=== PATIENT | male | born 1965 | race Caucasian/White ===

== ENCOUNTER 2018-07-12 04:30 | Emergency (ER) | payer SELFPAY ==
[~2018-07-12] VITALS: Ht 182.9 cm; Wt 74.8 kg
[2018-07-12] MEDS ORDERED: LIDO:MAALOX 1:1 20 ML SINGLE DOSE. PO ONE (04:45)
--- NOTE | 2018-07-12 04:48 | PHYS DOC ---
Adult General Chief Complaint Chief Complaint: ABDOMINAL PAIN HPI HPI Patient is a 53 year old male who presents with epigastric pain. Patient states he has been having pain over the last 2-3 weeks. The pain is in the epigastrium and is intermittent. It is described to be sharp in nature. The pain is nonradiating. He has had no nausea or vomiting. He has had no fever or chills. He denies urinary symptoms. The patient was evaluated at [facility] for the exact same symptoms 3 days earlier. He reports that he was diagnosed with a likely ulcer and recommended to follow up with a GI physician for an endoscopy. He was placed on an unknown medication but has so far been unable to fill a prescription. The patient is in a poor social situation. He is an alcoholic. He has recently been homeless. He is currently staying in a long- term assisted currently. He has not had alcohol for the last 4 days. He does not currently complain of withdrawal symptoms. Review of Systems Review of Systems Constitutional: Denies fever or chills Eyes: Denies change in visual acuity HENT: Denies nasal congestion Respiratory: Denies cough or shortness of breath Cardiovascular: No additional information GI: as documented above : Denies dysuria Musculoskeletal: Denies back pain Integument: Denies rash or skin lesions All other systems were reviewed and found to be within normal limits, except as documented in this note. Current Medications Current Medications Current Medications Medications (Trade) Dose Ordered Sig/Caitlin Start Time Stop Time Status Last Admin Dose Admin Multi-Ingredient Mouthwash/Gargle (Gi Cocktail) 20 ml 1X ONCE 07/12/18 04:45 07/12/18 04:46 DC 07/12/18 04:56 20 ML Allergies Allergies Allergies Coded Allergies Type Severity Reaction Last Updated Verified No Known Drug Allergies 07/12/18 No Physical Exam Physical Exam Constitutional: Well developed, well nourished, no acute distress, non-toxic appearance HENT: Normocephalic, atraumatic, bilateral external ears normal, oropharynx moist Eyes: PERRLA, EOMI, conjunctiva normal Neck: Normal range of motion Cardiovascular:Heart rate regular rhythm, no murmur Lungs & Thorax: Bilateral breath sounds clear to auscultation Abdomen: Bowel sounds normal, soft, no tenderness Skin: Warm, dry, no erythema Back: No tenderness Extremities: No edema Neurologic: Alert and oriented X 3 Current Patient Data Vital Signs Vital Signs Date Time Temp Pulse Resp B/P (MAP) Pulse Ox O2 Delivery O2 Flow Rate FiO2 07/12/18 04:30 98.7 89 18 171/98 (122) 98 Room Air 98.7 Lab Values Laboratory Tests Test 07/12/18 05:00 White Blood Count 9.9 x10^3/uL (4.0-11.0) Red Blood Count 4.61 x10^6/uL (4.30-5.70) Hemoglobin 15.7 g/dL (13.0-17.5) Hematocrit 44.0 % (39.0-53.0) Mean Corpuscular Volume 96 fL (79-100) Mean Corpuscular Hemoglobin 34 pg (25-35) Mean Corpuscular Hemoglobin Concent 36 g/dL (31-37) Red Cell Distribution Width 15.4 % (11.5-14.5) H Platelet Count 375 x10^3/uL (140-400) Neutrophils (%) (Auto) 61 % (31-73) Lymphocytes (%) (Auto) 25 % (24-48) Monocytes (%) (Auto) 11 % (0-9) H Eosinophils (%) (Auto) 3 % (0-3) Basophils (%) (Auto) 0 % (0-3) Neutrophils # (Auto) 6.1 x10^3uL (1.8-7.7) Lymphocytes # (Auto) 2.5 x10^3/uL (1.0-4.8) Monocytes # (Auto) 1.1 x10^3/uL (0.0-1.1) Eosinophils # (Auto) 0.3 x10^3/uL (0.0-0.7) Basophils # (Auto) 0.0 x10^3/uL (0.0-0.2) Sodium Level 138 mmol/L (136-145) Potassium Level 3.9 mmol/L (3.5-5.1) Chloride Level 100 mmol/L (98-107) Carbon Dioxide Level 31 mmol/L (21-32) Anion Gap 7 (6-14) Blood Urea Nitrogen 10 mg/dL (8-26) Creatinine 0.8 mg/dL (0.7-1.3) Estimated GFR (Cockcroft-Gault) 101.9 Glucose Level 126 mg/dL (70-99) H Calcium Level 9.2 mg/dL (8.5-10.1) Total Bilirubin Pending Direct Bilirubin Pending Aspartate Amino Transferase (AST) Pending Alanine Aminotransferase (ALT) Pending Alkaline Phosphatase Pending Total Protein Pending Albumin Pending Lipase Pending Laboratory Tests 07/12/18 05:00 Laboratory Tests 07/12/18 05:00 EKG EKG [] Radiology/Procedures Radiology/Procedures [] Course & Med Decision Making Course & Med Decision Making Pertinent Labs and Imaging studies reviewed. (See chart for details) Patient is seen and examined. No acute distress. Abdominal examination is completely benign and NTTP. Will check basic labs. No imaging indicated this evening based on his normal examination. I did discuss this patient with a physician at [facility] who reviewed the electronic medical record. The patient was evaluated there on July 08. He did have a stool that was guaiac positive. His hemoglobin was 15. The rest of his abdominal pain labs were unremarkable. No CT scan was performed at that time as his examination was also benign. 05:50: All labs are reviewed. His hemoglobin has not changed. He is feeling much improved after GI cocktail. Plan is for discharge home. He is placed on twice a day dosing of Nexium. He is placed on Carafate also twice a day. He is provided the number to the on-call claim service representative to follow up with. He will return to the ER for any new or worsening symptoms. Dragon Disclaimer Dragon Disclaimer This electronic medical record was generated, in whole or in part, using a voice recognition dictation system. Departure Departure Scripts Esomeprazole Magnesium (NEXIUM CAPSULE) 40 Mg Capsule. 1 CAP PO BID, #60 CAP 1 Refill Prov: DIPESH EDDY DO 07/12/18 Sucralfate (CARAFATE) 1 Gm Tablet 1 GM PO BID for 30 Days, #60 TAB Prov: DIPESH EDDY DO 07/12/18 DIPESH EDDY DO Jul 12, 2018 04:48
[2018-07-12 05:24] LABS: BASO % 0 % (0-3); EOS # 0.3 x10^3/uL (0.0-0.7); EOS % 3 % (0-3); HEMOGLOBIN 15.7 g/dL (13.0-17.5); LYMPH # 2.5 x10^3/uL (1.0-4.8); LYMPH % 25 % (24-48); MEAN CORPUSCULAR HEMOGLOBIN 34 pg (25-35); MEAN CORPUSCULAR HGB CONC 36 g/dL (31-37); MEAN CORPUSCULAR VOLUME 96 fL (79-100); MONO # 1.1 x10^3/uL (0.0-1.1); MONO % 11 % (0-9); NEUT # 6.1 x10^3uL (1.8-7.7); NEUT % 61 % (31-73); PLATELET COUNT 375 x10^3/uL (140-400); RED BLOOD COUNT 4.61 x10^6/uL (4.30-5.70); RED CELL DISTRIBUTION WIDTH 15.4 % (11.5-14.5); WHITE BLOOD COUNT 9.9 x10^3/uL (4.0-11.0)
[2018-07-12 05:31] VITALS: BP 149/85
[2018-07-12] MEDS ORDERED: SUCR1TAB35 PO (05:37)
[2018-07-12] MEDS ORDERED: ESOM40CA PO (05:37)
[2018-07-12 05:41] LABS: CALCIUM 9.2 mg/dL (8.5-10.1); CREATININE 0.8 mg/dL (0.7-1.3); GFR 101.9; POTASSIUM 3.9 mmol/L (3.5-5.1)
[2018-07-12 05:47] LABS: ALBUMIN 3.6 g/dL (3.4-5.0); DIRECT BILIRUBIN 0.1 mg/dL (0.0-0.2); TOTAL BILIRUBIN 0.2 mg/dL (0.2-1.0); TOTAL PROTEIN 7.5 g/dL (6.4-8.2)
== END 2018-07-12 06:00 | disposition home or self-care (01) ==
LOC: ER 04:30
DX: R10.13 Epigastric pain (principal); F10.20 Alcohol dependence, uncomplicated; Z59.0 Homelessness
CPT/HCPCS: 36415; 80048; 80076; 83690; 85025; 99284